=== PATIENT | female | born 1960 | race Caucasian/White ===

== ENCOUNTER → 2023-01-27 14:51 | Outpatient (CLI) | payer OTHER, SELFPAY | PROVIDERS: PCP Family Medicine; Referring Provider Psychiatry & Neurology Psychiatry; Visit Provider Psychiatry & Neurology Psychiatry | DX: F32.9 Major depressive disorder, single episode, unspecified (principal); R53.83 Other fatigue; Z79.899 Other long term (current) drug therapy | CPT/HCPCS: 93005 ==